=== PATIENT | female | born 1960 ===

== ENCOUNTER 2024-06-10 13:49 | Outpatient (AMB) | payer MEDICAID, SELFPAY ==
--- NOTE | 2024-06-10 14:03 | A.OFFPC_ITS ---
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 Care is being transferred from Dr. Evens Chu in [place], [place]. Medical records were requested today. The patient will require the following durable medical equipment (DME): Diapers, Gloves, Rollator, Wheelchair, Underpads. 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 Name: Pt refuse hever interpret Accompanied by: Daughter Allergies No Known Allergies Allergy (Verified 06/10/24 14:26) Medication List - Last Reconciled 06/10/24 by MALCOLM Rawls amantadine HCl 100 mg PO DAILY carbidopa-levodopa 25-250 mg 1 tab PO TID pantoprazole 40 mg PO DAILY pramipexole 1 mg PO DAILY Tobacco use date assessed: 06/10/24 Fall risk assessment: No Falls in past year Last assessed Fall Risk: 06/10/24 Dental Screening Dental Screen Date: 06/10/24 Did you have a dental visit in the last 12 months?: Yes Did you have a dental problem in the last 6 months where you did not have access to dental care?: No Was dental information given to patient?: Patient has dentist HPI 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 Evens Chu, In [place] Last visit:February 2024- just a follow up Last PE: June 2023 Specialist: Neurologist(parkinson's disease) OBGYN: obyn-patient needs to have mammogram every 6 months Past medical history: Parkinson's disease, prediabetes Medications: Family HX: Problem: reports neck pain that has been going on for few 6 months s/p fall in her kitchen reports going to the Dr and they gave her muscle relaxer that help a little only reports that they was no x-rays done or physical therapy for her neck Reports that she was getting PT for her parkinson's disease in the past, in [place] Reports that she has been having edema in BLE about 2 years now Reports that US venous Doppler was done in [place] and was negative She reports intermittent pain her legs Encouraged the patient to wear compression stockings reports that her legs has decreased sensation and pins and needles type pain consider referring her to Vascular leg are genaro as well a1c 5.9% prediabetes The patient is requesting a Rollator walker, wheelchair, diapers, gloves, and underpads The patient is incontinent and has for coordination due to Parkinson's She needs help with ADL at home to assist daughter who works and is not at home all the time to care for the patient The patient also would need bar assistant with transportation to appointments for the times when the daughter is at work Patient daughter reports that the patient was referred from her neurologist to a neurosurgeon for DBS surgery She is requesting a neurology referral with hopes that she could be referred to a neurosurgeon again Reports that she had one side DBS done already [facility] Medical History Aftercare following surgery of the nervous system, NEC Parkinson disease Type II diabetes mellitus Social History Housing: House Patient Tobacco Use Status: Never used Tobacco Tobacco use type: Cigarette e-Cigarette/Vaping Use: Never Used service: Yes Cognitive needs: Yes Hearing needs: No Vision needs: Yes Questionnaire PHQ-9 Over the last 2 weeks, how often have you been bothered by any of the following problems? 1. Little interest or pleasure in doing things: not at all 2. Feeling down, depressed, or hopeless: not at all 3. Trouble falling or staying asleep, or sleeping too much: nearly every day 4. Feeling tired or having little energy: not at all 5. Poor appetite or overeating: not at all 6. Feeling bad about yourself - or that you are a failure or have let yourself or your family down: not at all 7. Trouble concentrating on things, such as reading the newspaper or watching television: not at all 8. Moving or speaking so slowly that other people could have noticed. Or the opposite - being so fidgety or restless that you have been moving around a lot more than usual: nearly every day 9. Thoughts that you would be better off or of hurting yourself in some way: not at all Total score: 6 Depression Screening Interpretation: Positive Depression Screening Done: Yes 55086 - PHQ-9 Billing: Yes Source: Developed by Drs. Dung Brewster, Augusta Dawn, Hussein Ham and colleagues, with an educational amarjit from [employer] Thrive Questionnaire Date Thrive assessed: 06/10/24 I am a: Patient What is your living situation today?: I have a steady place to live Within the past 12 months, did the food you bought not last and you didn't have the money to get more?: Never true Within the past 12 months, did you worry whether your food would run out before you got money to buy more?: Sometimes True Do you have trouble paying for medicines?: No Do you have trouble getting transportation to medical appointments?: No Do you have trouble paying your heating and electricity bill?: No Do you have trouble taking care of your child, family member or friend?: No Do you have trouble with day-to-day activities such as bathing, preparing meals, shopping, managing finances, etc.?: Yes Are you currently unemployed and looking for a job?: No Are you interested in more education?: No Please select the resources that you would like help with: Care for elder or disabled and Daily support Currently or been in a relationship where the following occur: No concerns reported THRIVE Score: 1 AUDIT C Alcohol Use Questionnaire (AUDIT-C) 1. How often do you have a drink containing alcohol?: Never 3. How often do you have six or more drinks on one occasion?: Never Total Score: 0 MAVIS-7 AMB Questionnaire MAVIS-7 Date MAVIS - 7 assessed: 06/10/24 Feeling nervous, anxious, or on edge: 0 = Not at all Not being able to stop or control worryin = Not at all Worrying too much about different things: 0 = Not at all Trouble relaxin = Nearly every day Being so restless that it is hard to sit still: 0 = Not at all Becoming easily annoyed or irritable: 0 = Not at all Feeling afraid as if something awful might happen: 0 = Not at all Total MAVIS-7 score (0-4 normal; 5-9 mild; 10-14 moderate; 15-21 severe): 3 Source: Developed by Drs. Dung Brewster, Augusta Dawn, Hussein Ham and colleagues, with an educational amarjit from [employer] MAVIS-7 Assessment Billing MAVIS-7 Assessment Tool: MAVIS-7 Assessment 96205 Review of Systems Const Denies headache(s) Eyes Denies loss of vision ENT Denies vertigo, Denies dizziness, Denies headache(s), Reports neck pain and Denies sore throat Card Denies chest pain, Denies leg edema and Denies lightheadedness Resp Denies cough and Denies hemoptysis GI Denies abdominal pain, Denies melena, Denies constipation, Reports fecal incontinence, Denies diarrhea and Denies vomiting Denies urinary frequency, Denies dysuria, Reports urinary incontinence and Denies urinary urgency Musc Denies arthralgias, Denies joint swelling, Reports muscle cramps, Reports neck pain, Denies numbness and Denies tingling Skin/Breast Reports change in pigmentation (BLE redness) and Reports skin swelling (BLE) Neuro Denies Abnormal speech present, Denies vertigo, Denies dizziness, Denies headache(s), Reports lack of coordination, Denies loss of vision, Denies numbness, Denies tingling, Reports paresthesias (BLE) and Reports tremor(s) Psych Details: UE Physical exam (Primary Care) Vital Signs: Last Vital Signs Temp 97.3 F 06/10/24 14:06 Pulse 75 06/10/24 14:06 BP 92/60 06/10/24 14:06 Pulse Ox 98 06/10/24 14:06 Oxygen Delivery Method Room Air 06/10/24 14:06 BMI result Body Mass Index 37.8 Tobacco/Smoking Status: Tobacco use Status Tobacco use date assessed 06/10/24 06/10/24 14:21 Patient Tobacco Use Status Never used Tobacco 06/10/24 14:21 Tobacco use type Cigarette 06/10/24 14:21 e-Cigarette/Vaping Use Never Used 06/10/24 14:21 PHQ-9: PHQ-9 Score PHQ-9: Total score 6 06/10/24 21:13 Depression Screening Interpretation: Positive Thrive Assessment: Date of Thrive Assessment Date Thrive assessed 06/10/24 06/10/24 14:21 Currently or been in a relationship where the following occur: No concerns reported Const General: healthy appearing, no acute distress, alert and awake Nutritional Appearance: well nourished HENDC Ears: external ears normal General nose exam: Normal external nose present Eyes Conjunctivae: conjunctivae normal Sclerae: sclerae normal Pupils: Equal, round and reactive pupils present Neck Neck: Yes no lymphadenopathy and Yes no JVD Thyroid: Thyroid normal Carotids: no bruits Resp Effort & Inspection: normal respiratory effort and not tachypneic Auscultation: no crackles, no rales, no rhonchi and no wheezes Cardio Rate: regular rate Rhythm: regular rhythm Heart sounds: no murmurs and normal S1 and S2 GI Palpation (GI): Soft to palpation and nontender Auscultation: normal bowel sounds General: Yes no CVA tenderness Back/Spine/Pelvis Back: no CVA tenderness Cervical Spine: Cervical spine tenderness Thoracic/Lumbar Spine: No thoracic spinal tenderness and No lumbar spinal tenderness Skin General skin exam: erythema (BLE) Neuro Cranial nerves: Yes Equal, round and reactive pupils present Speech: No Abnormal speech present Gait exam (Neuro): Assisted gait required (assisted by daughter) Motor exam (neuro): Tremors during motor activity present (both arms noted) Extrem Right lower extremity: full ROM, normal capillary refill and edema Left lower extremity: full ROM, normal capillary refill and edema Results AMB Hemoglobin A1c AMB Hemoglobin A1c 5.9 % Last Edit by MITZI Guevara on 06/10/24 14:25 Results Reviewed Results Reviewed: Laboratory Last Values Hgb A1c (Clinic) 5.9 % (4.0-6.0) 06/10/24 14:25 Coding Level of Care Code New Pt Level 4 (00633) Diagnoses Neck pain M54.2 Neuralgia M79.2 Type 2 diabetes mellitus with other specified complication, without long-term current use of insulin E11.69 Diabetes mellitus complication status: with other specified complication 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 home use Diabetes mellitus type: type 2 Parkinson's disease, unspecified whether dyskinesia present, unspecified whether manifestations fluctuate G20.A1 Dyskinesia presence: unspecified whether dyskinesia Fluctuating manifestations: unspecified whether manifestations fluctuate Urinary incontinence, unspecified type R32 Incontinence type: urinary Urinary Incontinence type: unspecified incontinence Additional Codes MAVIS-7 Assessment Billing - MAVIS-7 Assessment Tool: MAVIS-7 Assessment 81687 ([id number]) PHQ-9 - 67178 - PHQ-9 Billing: Yes ([id number]) Time Spent (min) 46 Assessment & Plan Assessment & Plan (1) Neck pain: Code(s): M54.2 - Cervicalgia Category: Medical Plan: Reports ongoing neck pain from status post fall six-month ago. Reports that the patient was started on muscle relaxer that helped some. We will order a cervical x-ray to further evaluate. PT referral placed as well (2) Neuralgia: Code(s): M79.2 - Neuralgia and neuritis, unspecified Category: Medical Plan: Bilateral lower legs edema with some redness. Appears to be vascular deficiency related. Encouraged compression stockings. Gabapentin 100 mg t.i.d. ordered. 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 Patient daughter reports that the patient did not take the medication because she did not think that she needed it. A1c done in office was 5.9%, which puts the patient in the pre diabetic range. We will continue to monitor (4) Parkinson disease: Code(s): G20.A1 - Parkinson's disease without dyskinesia, without mention of fluctuations Category: Medical Qualifiers: Dyskinesia presence: unspecified whether dyskinesia Fluctuating manifestations: unspecified whether manifestations fluctuate Qualified Code(s): G20.A1 - Parkinson's disease without dyskinesia, without mention of fluctuations Plan: Patient had 1 side of DBS procedure for Parkinson per daughter. Reports that she would need a new neurologist to monitor her Parkinson's and also her neurologist referred her to a neurosurgeon for the DBS procedure in [place] Continue amantadine HCI 100 mg daily, carbidopa-levodopa 25-250 mg 1 tab TID, and Pramipexole 1 mg daily Will refer the patient to neurology. The patient daughter request for the p atient to have Rollator walker with seat for rest periods, and a wheelchair for long distance. These could significantly impact the patient quality of life. The patient could also from assistance with transportation to appointments when her daughter is at work. (5) Incontinence: Code(s): R32 - Unspecified urinary incontinence Category: Medical Qualifiers: Incontinence type: urinary Urinary Incontinence type: unspecified incontinence Qualified Code(s): R32 - Unspecified urinary incontinence Plan: The patient daughter requested dry direct super overnight unaware XX large, plus under past pads. The patient would also benefit from in home services to help the patient with ADLs when her daughter is at work. Orders: Orders AMB Hemoglobin A1c Today E11.9 - Type 2 diabetes mellitus without complic ations, G20.A1 - Parkinson's disease without dyskinesia, without mention of fluctuations Comprehensive [place]. Panel Fast Today E11.9 - Type 2 diabetes mellitus without complications, G20.A1 - Parkinson's disease without dyskinesia, without mention of fluctuations, M79.2 - Neuralgia and neuritis, unspecified, Z00.00 - Encounter for general adult medical examination without abnormal findings Vitamin D 25-OH Total Today E11.9 - Type 2 diabetes mellitus without complications, G20.A1 - Parkinson's disease without dyskinesia, without mention of fluctuations, M79.2 - Neuralgia and neuritis, unspecified, Z00.00 - Encounter for general adult medical examination without abnormal findings Magnesium Today E11.9 - Type 2 diabetes mellitus without complications, G20.A1 - Parkinson's disease without dyskinesia, without mention of fluctuations, M79.2 - Neuralgia and neuritis, unspecified, Z00.00 - Encounter for general adult medical examination without abnormal findings TSH reflex Free T4 Today E11.9 - Type 2 diabetes mellitus without complications, G20.A1 - Parkinson's disease without dyskinesia, without mention of fluctuations, M79.2 - Neuralgia and neuritis, unspecified, Z00.00 - Encounter for general adult medical examination without abnormal findings Hemoglobin A1c Today E11.9 - Type 2 diabetes mellitus without complications, G20.A1 - Parkinson's disease without dyskinesia, without mention of fluctuations, M79.2 - Neuralgia and neuritis, unspecified, Z00.00 - Encounter for general adult medical examination without abnormal findings B Type Natriuretic Peptide Today M79.89 - Other specified soft tissue disorders Complete Blood Count Auto Diff Today E11.9 - Type 2 diabetes mellitus without complications, G20.A1 - Parkinson's disease without dyskinesia, without mention of fluctuations, M79.2 - Neuralgia and neuritis, unspecified, Z00.00 - Encounter for general adult medical examination without abnormal findings Lipid Panel Today E11.9 - Type 2 diabetes mellitus without complications, G20.A1 - Parkinson's disease without dyskinesia, without mention of fluctuations, M79.2 - Neuralgia and neuritis, unspecified, Z00.00 - Encounter for general adult medical examination without abnormal findings Vitamin B12 and Folate Today E11.9 - Type 2 diabetes mellitus without complications, G20.A1 - Parkinson's disease without dyskinesia, without mention of fluctuations, M79.2 - Neuralgia and neuritis, unspecified, Z00.00 - Encounter for general adult medical examination without abnormal findings UA CC w/rflx Micro + Cult Today E11.9 - Type 2 diabetes mellitus without complications, G20.A1 - Parkinson's disease without dyskinesia, without mention of fluctuations, M79.2 - Neuralgia and neuritis, unspecified, Z00.00 - Encounter for general adult medical examination without abnormal findings Glucose Fasting Today E11.9 - Type 2 diabetes mellitus without complications, G20.A1 - Parkinson's disease without dyskinesia, without mention of fluctuations, M79.2 - Neuralgia and neuritis, unspecified, Z00.00 - Encounter for general adult medical examination without abnormal findings XR cervical spine 3V Today M54.2 - Cervicalgia PT Evaluation and Treatment Today M54.2 - Cervicalgia Referrals Neurology Referral G20.A1 - Parkinson's disease without dyskinesia, without mention of fluctuations Medications: New 2 trazodone 50 mg PO BEDTIME PRN 30 tabs 1RF sleep [Wheelchair] As directed 1 ea 0RF G20.A1 - Parkinson's disease without dyskinesia, without mention of fluctuations amantadine HCl 100 mg PO DAILY 30 caps 3RF amantadine HCl 100 mg PO DAILY 90 caps 3RF gabapentin 100 mg PO TID 30 days 90 caps 1RF [Dry Direct Super Ovrernight Underwear ()] As directed 36 ea 3RF R32 - Unspecified urinary incontinence [Gloves] As directed 100 ea 3RF R32 - Unspecified urinary incontinence [Underpads] As directed 90 ea 3RF R32 - Unspecified urinary incontinence [Rollator Walker with Seat] As directed 1 ea 0RF G20.A1 - Parkinson's disease w ithout dyskinesia, without mention of fluctuations
[2024-06-10 14:06] VITALS: BP 92/60; PULSE 75; TEMP 36.3; O2SAT 98; BMI 37.8
== END 2024-06-10 15:05 | disposition home or self-care (01) ==
LOC: HO.HMCH 13:49
DX: E11.69 Type 2 diabetes mellitus with other specified complication (principal); G20.A1 Parkinson's disease without dyskinesia, without mention of fluctuations; E11.40 Type 2 diabetes mellitus with diabetic neuropathy, unspecified; M54.2 Cervicalgia; M79.2 Neuralgia and neuritis, unspecified; R32 Unspecified urinary incontinence

== ENCOUNTER → 2024-06-10 13:49 | Outpatient (BNVA) | payer MEDICAID, SELFPAY | DX: G20.A1 Parkinson's disease without dyskinesia, without mention of fluctuations (principal); M54.2 Cervicalgia; M79.2 Neuralgia and neuritis, unspecified; E11.69 Type 2 diabetes mellitus with other specified complication; R32 Unspecified urinary incontinence | CPT/HCPCS: 83036; 96127; 99202 ==

== ENCOUNTER 2024-06-24 08:13 | Outpatient (REF) | payer MEDICAID, SELFPAY ==
--- NOTE | ~2024-06-24 | XR_ITS ---
EXAMINATION: XR CERVICAL SPINE CLINICAL INFORMATION: M54.2 - Cervicalgia COMPARISON: None available. TECHNIQUE: 3 views of the cervical spine were obtained. FINDINGS: No scoliosis. Mild straightening of the normal lordosis. Normal sagittal alignment without subluxation. No fracture, compression deformity, or suspicious bone lesion. Craniocervical junction and C1-2 articulation intact and aligned. Moderate disc degeneration present most notable at C4-5 and C5-6. There is otherwise mild disc degeneration. Mild multilevel degenerative facet changes. Normal facet alignment. The prevertebral soft tissues appear normal. Lung apices are clear. XR/XR cervical spine 3V IMPRESSION: 1. No acute bony abnormalities. 2. Mild to moderate cervical spondylosis. Electronically signed by: Kashif Reynolds MD 06/25/2024 03:38 PM EDT
[2024-06-24 08:40] LABS: MANUAL DIFF FLAG NO
[2024-06-24 09:42] LABS: Basophils Absolute Auto 0.1 X10*3/uL (0.0-0.2); Basophils Percent Auto 0.7 % (0-2); Eosinophils Absolute Auto 0.2 X10*3/uL (0.0-0.4); Eosinophils Percent Auto 2.6 % (0-4); Hematocrit 39.5 % (37.0-47.0); Hemoglobin 12.2 g/dl (12.0-16.0); Imm Gran Abs Auto 0.02 X10*3/uL (0.00-0.03); Imm Gran Pct Auto 0.3 % (0.0-0.4); Lymphocytes Absolute Auto 2.3 X10*3/uL (1.2-4.9); Mean Corpuscular HGB Conc 30.9 g/dl (31.0-35.0); Mean Corpuscular Volume 84.2 fL (80.0-98.0); Mean Platelet Volume 9.8 fL (9.4-12.3); Monocytes Absolute Auto 0.5 X10*3/uL (0.1-1.2); Monocytes Percent Auto 7.7 % (2-11); Neutrophils Absolute Auto 3.8 x10*3/uL (2.0-8.3); Neutrophils Percent Auto 54.7 % (45-73); Platelet Count 360 X10*3/uL (160-400); Red Blood Count 4.69 X10*6/uL (4.20-5.50); Red Cell Distribution Width 17.3 % (11.0-16.0); White Blood Count 6.9 X10*3/uL (4.8-10.8)
[2024-06-24 09:48] LABS: Estimated Average Glucose 134 mg/dL; Hemoglobin A1C 148.9313 umol/L; Hemoglobin A1c % 6.3 % (<6.0); Total Hemoglobin (HGBA1C) 3308.4649 umol/L
[2024-06-24 10:15] LABS: B Type Natriuretic Peptide < 10 pg/mL (<100)
[2024-06-24 10:20] LABS: Alanine Aminotransferase 6 U/L (0-31); Alkaline Phosphatase 94 U/L (39-117); Anion Gap 11 (12-20); Aspartate Amino Transferase 19 U/L (5-31); Blood Urea Nitrogen 28 mg/dL (9-16); Calcium 9.6 mg/dL (8.4-10.2); Carbon Dioxide 30 mmol/L (22-29); Chloride 105 mmol/L (96-108); Cholesterol 206 mg/dL (<200); Estimated Glomerular Filt Rate > 60; Glucose Fasting 110 mg/dL (60-99); HDL Cholesterol 61 mg/dL (>40); LDL Cholesterol Calculated 119 mg/dL (<100); Magnesium 2.3 mg/dL (1.6-2.6); Sodium 142 mmol/L (135-145); Total Protein 7.8 g/dL (6.5-8.0); Triglycerides 131 mg/dL (<150)
[2024-06-24 10:42] LABS: TSH reflex Free T4 2.73 uIU/mL (0.32-4.0); Vitamin D 25-OH Total 6.6 ng/mL (>30)
[2024-06-24 10:57] LABS: Vitamin B12 667 pg/mL (200-900)
[2024-06-24 13:55] LABS: Appearance Urine Clear; Color Urine Yellow; Glucose Urine UA Negative (Negative); Leukocyte Esterase Urine Negative (Negative); Nitrite Urine Negative (Negative); PH 6.5 (5.0-9.0); Urine Blood Negative (Negative); Urine Ketones Trace mg/dL (Negative); Urine Protein Negative (Neg-Trace)
== END 2024-06-24 08:14 | disposition home or self-care (01) ==
LOC: HO.XRAY 08:13
DX: E11.9 Type 2 diabetes mellitus without complications (principal); G20.A1 Parkinson's disease without dyskinesia, without mention of fluctuations; M79.2 Neuralgia and neuritis, unspecified; Z00.00 Encounter for general adult medical examination without abnormal findings; M79.89 Other specified soft tissue disorders; M47.812 Spondylosis without myelopathy or radiculopathy, cervical region
CPT/HCPCS: 36415; 72040; 80053; 80061; 81003; 82306; 82607; 82746; 83036; 83735; 83880; 84443; 85025

== ENCOUNTER → 2024-06-24 08:47 | Outpatient (BNV) | payer MEDICAID, SELFPAY | PROVIDERS: Visit Provider Radiology Diagnostic Radiology | DX: M54.2 Cervicalgia (principal); M47.892 Other spondylosis, cervical region | CPT/HCPCS: 72040 ==

== ENCOUNTER 2024-08-12 15:47 | Outpatient (AMB) | payer MEDICAID, SELFPAY ==
--- NOTE | 2024-08-12 15:58 | A.OFFPC_ITS ---
Vital Signs 08/12/24 15:59 Height 4 ft 9.28 in Weight 179 lb 3.773 oz BMI 38.4 BP 130/80 Blood Pressure Location Lt brachial Position Sitting Respiration 22 H Pulse 92 Pulse Source Pulse Oximeter Temp 98.8 F Temp Source Oral Pulse Oximetry (%) 95 Oxygen Delivery Method Room Air Intake Visit Reasons: pe [employer] Consultant Required: Yes [employer] Consultant Language: Stamp Classifier Name: Pt declined Accompanied by: Daughter Allergies No Known Allergies Allergy (Verified 08/12/24 16:23) Medication List - Last Reconciled 08/12/24 by MALCOLM Rawls amantadine HCl 100 mg PO DAILY carbidopa-levodopa 25-250 mg 1 tab PO QID cholecalciferol (vitamin D3) 50 mcg PO DAILY [Dry Direct Super Ovrernight Underwear (XX) As directed] gabapentin 100 mg PO TID 30 days [Gloves As directed] pantoprazole 40 mg PO DAILY [Portable Transport Wheelchair As directed] pramipexole 1 mg PO TID [Rollator Walker with Seat As directed] trazodone 50 mg PO BEDTIME PRN [Underpads As directed] [Wheelchair As directed] Tobacco use date assessed: 08/12/24 Fall risk assessment: 2 + Falls in past year Last assessed Fall Risk: 08/12/24 Dental Screening Dental Screen Date: 08/12/24 Did you have a dental visit in the last 12 months?: Yes Did you have a dental problem in the last 6 months where you did not have access to dental care?: No Was dental information given to patient?: Patient has dentist HPI pe HPI Details The patient is a 64-year-old female presenting for a routine physical examination and management of ongoing chronic health concerns. Notably, she has diabetes mellitus with a controlled HbA1c level. Concerns of pruritus and vaginal odor have been linked to her diabetes, although recent Pap tests did not identify any pathology. Concerning her cardiovascular health, the patient has treated hypercholesterolemia with LDL levels at 119. 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 There has been a 4-pound weight gain recently, coupled with reported increased anxiety levels impacting dietary habits, with an emphasis on limited physical activity attributed to back discomfort. Back pain has been mistaken for renal issues, although her kidney function remains normal based on diagnostic evaluations. Additionally, the patient?s vitamin D levels are low, managed with supplementation. The patient?s compliance with vaccinations is consistent except for this year?s flu shot. She has undergone regular eye and dental examinations, and a colonoscopy was reported last year. Health Maintenance: - Diabetes monitoring with HbA1c at 6.3 - Hypercholesterolemia monitoring; LDL a t 119 - Vitamin D supplementation for deficien cy - Biennial mammography for benign breast neoplasm?next scheduled for - Updated vaccinations with the akosua n of this year's flu vaccine - Five COVID vaccines administered - Serological screening (e.g., Pap smear , colonoscopy) reported as normal and up-to-date [facility] Medical History (Updated 08/29/24 @ 19:42 by MALCOLM Rawls) Aftercare following surgery of the nervous system, NEC Parkinson disease Type II diabetes mellitus Surgical History Hx of brain surgery Hx of section Social History Housing: House Patient Tobacco Use Status: Never used Tobacco Tobacco use type: Cigarette e-Cigarette/Vaping Use: Never Used service: Yes Cognitive needs: Yes (Walker) Hearing needs: No Vision needs: Yes (Glasses) Questionnaire PHQ-9 Over the last 2 weeks, how often have you been bothered by any of the following problems? 1. Little interest or pleasure in doing things: not at all 2. Feeling down, depressed, or hopeless: not at all 3. Trouble falling or staying asleep, or sleeping too much: nearly every day 4. Feeling tired or having little energy: nearly every day 5. Poor appetite or overeating: nearly every day 6. Feeling bad about yourself - or that you are a failure or have let yourself or your family down: not at all 7. Trouble concentrating on things, such as reading the newspaper or watching television: several days 8. Moving or speaking so slowly that other people could have noticed. Or the opposite - being so fidgety or restless that you have been moving around a lot more than usual: not at all 9. Thoughts that you would be better off or of hurting yourself in some way: not at all Total score: 10 Depression Screening Interpretation: Positive Depression Screening Done: Yes Source: Developed by Augusta Martinez, Hussein Ham and colleagues, with an educational amarjit from [employer]. Thrive Questionnaire Date Thrive assessed: 08/12/24 I am a: Patient What is your living situation today?: I have a steady place to live Within the past 12 months, did the food you bought not last and you didn't have the money to get more?: Never true Within the past 12 months, did you worry whether your food would run out before you got money to buy more?: Sometimes True Do you have trouble paying for medicines?: No Do you have trouble getting transportation to medical appointments?: No Do you have trouble paying your heating and electricity bill?: No Do you have trouble taking care of your child, family member or friend?: No Do you have trouble with day-to-day activities such as bathing, preparing meals, shopping, managing finances, etc.?: Yes Are you currently unemployed and looking for a job?: No Are you interested in more education?: No Currently or been in a relationship where the following occur: No concerns reported THRIVE Score: 1 AUDIT C Alcohol Use Questionnaire (AUDIT-C) 1. How often do you have a drink containing alcohol?: Never 3. How often do you have six or more drinks on one occasion?: Never Total Score: 0 Score Reviewed/Action Taken: No MAVIS-7 AMB Questionnaire MAVIS-7 Date MAVIS - 7 assessed: 08/12/24 Feeling nervous, anxious, or on edge: 0 = Not at all Not being able to stop or control worryin = Nearly every day Worrying too much about different things: 3 = Nearly every day Trouble relaxin = Several days Being so restless that it is hard to sit still: 0 = Not at all Becoming easily annoyed or irritable: 0 = Not at all Feeling afraid as if something awful might happen: 3 = Nearly every day Total MAVIS-7 score (0-4 normal; 5-9 mild; 10-14 moderate; 15-21 severe): 10 Source: Developed by Augusta Martinez Kurt Kroenke and colleagues, with an educational amarjit from [employer] Review of Systems Const Denies headache(s), Reports lethargy and Reports weight gain Eyes Denies loss of vision ENT Denies vertigo, Denies dizziness, Denies headache(s) and Denies sore throat Card Denies chest pain, Denies leg edema and Denies lightheadedness Resp Denies cough, Denies hemoptysis and Denies wheezing GI Denies abdominal pain, Denies melena, Reports constipation, Denies diarrhea and Denies vomiting Denies urinary frequency, Denies dysuria, Reports urinary incontinence, Denies urinary urgency, Reports vaginal odor and Reports vaginal pruritus Musc Reports back pain (lower back), Denies arthralgias, Denies joint swelling, Denies numbness and Denies tingling Skin/Breast Reports pruritus Neuro Denies Abnormal speech present, Denies behavioral changes, Denies vertigo, Denies dizziness, Denies headache(s), Denies loss of vision, Denies memory loss, Denies numbness and Denies tingling Psych Reports anxiety, Denies behavioral changes, Denies depression, Denies memory loss and Denies panic attacks Dillan/Lymph Denies easy bleeding and Denies easy bruising Aller/Immun Denies wheezing Physical exam (Primary Care) Vital Signs: Last Vital Signs Temp 98.8 F 08/12/24 15:59 Pulse 92 08/12/24 15:59 Resp 22 H 08/12/24 15:59 BP 130/80 08/12/24 15:59 Pulse Ox 95 08/12/24 15:59 Oxygen Delivery Method Room Air 08/12/24 15:59 BMI result Body Mass Index 38.4 Tobacco/Smoking Status: Tobacco use Status Tobacco use date assessed 08/12/24 08/12/24 16:19 Patient Tobacco Use Status Never used Tobacco 08/12/24 15:58 Tobacco use type Cigarette 08/12/24 15:58 e-Cigarette/Vaping Use Never Used 08/12/24 15:58 PHQ-9: PHQ-9 Score PHQ-9: Total score 10 08/12/24 16:28 Depression Screening Interpretation: Positive Thrive Assessment: Date of Thrive Assessment Date Thrive assessed 08/12/24 08/12/24 16:19 Currently or been in a relationship where the following occur: No concerns reported Const General: healthy appearing, no acute distress, alert and awake Nutritional Appearance: well nourished Orientation/consciousness: oriented to person, oriented to place and oriented to time HENMT Ears: TM's normal bilaterally General nose exam: Normal nasal mucous membranes and turbinates present Eyes Conjunctivae: conjunctivae normal Sclerae: sclerae normal Pupils: Equal, round and reactive pupils present Neck Neck: Yes no lymphadenopathy and Yes no JVD Thyroid: Thyroid normal Carotids: no bruits Resp Effort & Inspection: normal respiratory effort and not tachypneic Auscultation: no crackles, no rales, no rhonchi and no wheezes Cardio Rate: regular rate Rhythm: regular rhythm Heart sounds: no murmurs and normal S1 and S2 GI Palpation (GI): Soft to palpation, nontender, no hepatomegaly and no splenomegaly Auscultation: normal bowel sounds General: Yes no CVA tenderness Back/Spine/Pelvis Back: no CVA tenderness Thoracic/Lumbar Spine: No lumbar spinal tenderness Skin General skin exam: no rashes or lesions noted and dry skin Neuro General: oriented to person, oriented to place and oriented to time Cranial nerves: Yes Equal, round and reactive pupils present Speech: No Abnormal speech present Gait exam (Neuro): Normal gait present Motor exam (neuro): no tremor noted Extrem Right upper extremity: full ROM Left upper extremity: full ROM Right lower extremity: full ROM; no edema Left lower extremity: full ROM; no edema Psych Mental Status: mental status grossly normal Speech and movement: Normal speech and movement present Affect: normal affect Attitude: cooperative Thought process: Normal thought process present Results Reviewed Results Reviewed: Laboratory Tests 06/24/24 06/24/24 08:38 08:40 WBC 6.9 RBC 4.69 Hgb 12.2 Hct 39.5 MCV 84.2 MCH 26.0 L MCHC 30.9 L RDW 17.3 H Plt Count 360 Sodium 142 Potassium 4.0 Chloride 105 Carbon Dioxide 30 H Anion Gap 11 L BUN 28 H Creatinine 0.60 Estimated GFR > 60 Fasting Glucose 110 H Hemoglobin A1c % 6.3 H Calcium 9.6 Magnesium 2.3 Total Bilirubin 1.0 AST 19 ALT 6 Alkaline Phosphatase 94 B-Natriuretic Peptide < 10 Total Protein 7.8 Albumin 4.0 Triglycerides 131 Cholesterol 206 H LDL Cholesterol, Calc 119 H HDL Cholesterol 61 Vitamin B12 667 25-OH Vitamin D Total 6.6 L Folate 6.0 TSH 2.73 Urine Color Yellow Urine Appearance Clear Urine pH 6.5 Ur Specific [place] 1.020 Urine Protein Negative Urine Glucose (UA) Negative Urine Ketones Trace Urine Blood Negative Urine Nitrite Negative Ur Leukocyte Esterase Negative Coding Level of Care Code Est Pt Prev Care 40-64y([id number]) Diagnoses Annual physical exam Z00.00 Neuralgia M79.2 Cervical spondylosis M47.812 Parkinson's disease, unspecified whether dyskinesia present, unspecified whether manifestations fluctuate G20.A1 Dyskinesia presence: unspecified whether dyskinesia Fluctuating manifestations: unspecified whether manifestations fluctuate Urinary incontinence, unspecified type R32 Incontinence type: urinary Urinary Incontinence type: unspecified incontinence Type 2 diabetes mellitus with other specified complication, without long-term current use of insulin E11.69 Diabetes mellitus type: type 2 Diabetes mellitus mcfp insulin use: without mcfp use Diabetes mellitus complication status: with other specified complication Vaginal pruritus N89.8 Pure hypercholesterolemia E78.00 Vitamin D deficiency E55.9 Time Spent (min) 39 Assessment & Plan Assessment & Plan (1) Annual physical exam: Code(s): Z00.00 - Encounter for general adult medical examination without abnormal findings Category: Medical Plan: Preventative guidelines and recent labs reviewed with the patient. (2) Neuralgia: Code(s): M79.2 - Neuralgia and neuritis, unspecified Category: Medical Plan: Bilateral lower legs edema with some redness. Appears to be vascular deficiency related. Encouraged compression stockings. Gabapentin 100 mg t.i.d. ordered. (3) Cervical spondylosis: Code(s): M47.812 - Spondylosis without myelopathy or radiculopathy, cervical region Category: Medical Plan: Complained of neck pain on previous visit Cervical x-ray completed on 06/24/2024 Shows [id number] cervical spondylosis PT referral placed (4) Parkinson disease: Code(s): G20.A1 - Parkinson's disease without dyskinesia, without mention of fluctuations Category: Medical Qualifiers: Dyskinesia presence: unspecified whether dyskinesia Fluctuating manifestations: unspecified whether manifestations fluctuate Qualified Code(s): G20.A1 - Parkinson's disease without dyskinesia, without mention of fluctuations Plan: Patient had 1 side of DBS procedure for Parkinson per daughter. Reports that she would need a new neurologist to monitor her Parkinson's and also her neurologist referred her to a neurosurgeon for the DBS procedure in [place] Continue amantadine HCI 100 mg daily, carbidopa-levodopa 25-250 mg 1 tab TID, and Pramipexole 1 mg daily Will refer the patient to neurology. The patient daughter request for the patient to have Rollator walker with seat for rest periods, and a wheelchair for long distance. These could significantly impact the patient quality of life. The patient could also from assistance with transportation to appointments when her daughter is at work. (5) Incontinence: Code(s): R32 - Unspecified urinary incontinence Category: Medical Qualifiers: Incontinence type: urinary Urinary Incontinence type: unspecified incontinence Qualified Code(s): R32 - Unspecified urinary incontinence Plan: The patient daughter requested dry direct super overnight unaware XX large, plus under past pads. The patient would also benefit from in home services to help the patient with ADLs when her daughter is at work. (6) Diabetes: Code(s): E11.9 - Type 2 diabetes mellitus without complications Category: Medical Qualifiers: Diabetes mellitus type: type 2 Diabetes mellitus mcfp insulin use: without terminal superintendent use Diabetes mellitus complication status: with other specified complication Qualified Code(s): E11.69 - Type 2 diabetes mellitus with other specified complication Plan: The patient was diagnosed with type 2 diabetes in [place] and was prescribed metformin. Patient daughter reports that the patient did not take the medication because she did not think that she needed it. A1c done in office was 5.9%, which puts the patient in the pre diabetic range. Blood work done on 06/24/2024 A1c 6.3% Increase slightly but still remains in the pre diabetic range Reinforced low sugar/carbohydrate diet and activity as tolerated We will repeat A1c in 4 months (7) Vaginal pruritus: Code(s): N89.8 - Other specified noninflammatory disorders of vagina Category: Medical Plan: reports vaginal itching reports urine odor recent UA negative denies discharge or dysuria patient is incontinent of urine inadequate fluids to due to fear to incontinence suspect concentrated urine and itchiness from incontinence encouraged fluid intake and continue regular incontinence care (8) Pure hypercholesterolemia: Code(s): E78.00 - Pure hypercholesterolemia, unspecified Category: Medical Plan: Total cholesterol 206, triglycerides 131, LDL 119, HDL 61, 06/24/2024 Reinforced low-cholesterol diet and activity as tolerated We will recheck lipids in 4 months (9) Vitamin D deficiency: Code(s): E55.9 - Vitamin D deficiency, unspecified Category: Medical Plan: Vitamin-D 6.6-goal greater than 30 Cholecalciferol 50 mcg started we will recheck in 4 months Plan follow up in the 3 months Orders: Orders Comprehensive Harmon. Panel Fast 4 Months M54.2 - Cervicalgia, Z00.00 - Encounter for general adult medical examination without abnormal findings, G20.A1 - Parkinson's disease without dyskinesia, without mention of fluctuations, E11.69 - Type 2 diabetes mellitus with other specified complication, R32 - Unspecified urinary incontinence Lipid Panel 4 Months M54.2 - Cervicalgia, Z00.00 - Encounter for general adult medical examination without abnormal findings, G20.A1 - Parkinson's disease without dyskinesia, without mention of fluctuations, E11.69 - Type 2 diabetes mellitus with other specified complication, R32 - Unspecified urinary incontinence UA CC w/rflx Micro + Cult 4 Months M54.2 - Cervicalgia, Z00.00 - Encounter for general adult medical examination without abnormal findings, G20.A1 - Parkinson's disease without dyskinesia, without mention of fluctuations, E11.69 - Type 2 diabetes mellitus with other specified complication, R32 - Unspecified urinary incontinence TSH reflex Free T4 4 Months M54.2 - Cervicalgia, Z00.00 - Encounter for general adult medical examination without abnormal findings, G20.A1 - Parkinson's disease without dyskinesia, without mention of fluctuations, E11.69 - Type 2 diabetes mellitus with other specified complication, R32 - Unspecified urinary incontinence Complete Blood Count Auto Diff 4 Months M54.2 - Cervicalgia, Z00.00 - Encounter for general adult medical examination without abnormal findings, G20.A1 - Parkinson's disease without dyskinesia, without mention of fluctuations, E11.69 - Type 2 diabetes mellitus with other specified complication, R32 - Unspecified urinary incontinence Vitamin D 25-OH Total 4 Months M54.2 - Cervicalgia, Z00.00 - Encounter for gen eral adult medical examination without abnormal findings, G20.A1 - Parkinson's disease without dyskinesia, without mention of fluctuations, E11.69 - Type 2 diabetes mellitus with other specified complication, R32 - Unspecified urinary incontinence Hemoglobin A1c 4 Months M54.2 - Cervicalgia, Z00.00 - Encounter for general adult medical examination without abnormal findings, G20.A1 - Parkinson's disease without dyskinesia, without mention of fluctuations, E11.69 - Type 2 diabetes mellitus with other specified complication, R32 - Unspecified urinary incontinence Medications: New polyethylene glycol 3350 (Miralax) 17 grams PO DAILY 238 grams 2RF docusate sodium (Colace) 100 mg PO BID 60 caps 3RF
[2024-08-12 15:59] VITALS: BP 130/80; PULSE 92; RESP 22; TEMP 37.1; O2SAT 95; BMI 38.4
== END 2024-08-12 16:55 | disposition home or self-care (01) ==
LOC: HO.HMCH 15:47
DX: Z00.00 Encounter for general adult medical examination without abnormal findings (principal); M79.2 Neuralgia and neuritis, unspecified; M47.812 Spondylosis without myelopathy or radiculopathy, cervical region; G20.A1 Parkinson's disease without dyskinesia, without mention of fluctuations; R32 Unspecified urinary incontinence; E11.69 Type 2 diabetes mellitus with other specified complication; N89.8 Other specified noninflammatory disorders of vagina; E78.00 Pure hypercholesterolemia, unspecified; E55.9 Vitamin D deficiency, unspecified

== ENCOUNTER → 2024-08-12 15:47 | Outpatient (BNVA) | payer MEDICAID, SELFPAY | DX: Z00.00 Encounter for general adult medical examination without abnormal findings (principal); N89.8 Other specified noninflammatory disorders of vagina; E78.00 Pure hypercholesterolemia, unspecified; F41.9 Anxiety disorder, unspecified; E55.9 Vitamin D deficiency, unspecified; M79.2 Neuralgia and neuritis, unspecified; M47.812 Spondylosis without myelopathy or radiculopathy, cervical region; G20.A1 Parkinson's disease without dyskinesia, without mention of fluctuations; R32 Unspecified urinary incontinence; E11.69 Type 2 diabetes mellitus with other specified complication | CPT/HCPCS: 99397 ==

== ENCOUNTER 2024-08-26 13:34 | Outpatient (REF) | payer MEDICAID, SELFPAY | END 2024-08-26 13:35 | disposition home or self-care (01) | LOC: HO.MAMMO 13:34 | DX: Z13.89 Encounter for screening for other disorder (principal) ==

== ENCOUNTER 2024-10-27 10:48 | Outpatient (REF) | payer MEDICAID, SELFPAY ==
--- NOTE | ~2024-10-27 | MM_ITS ---
EXAMINATION: MM DIAGNOSTIC DIGITAL BREAST TOMOSYNTHESIS, BILATERAL CLINICAL INFORMATION: 6 month follow-up complicated cyst versus solid mass in the left breast 2-3 o'clock 6 to 7 cm from the nipple on outside imaging recommended. COMPARISON: Mammography: Comparison is made with relevant prior exams. TECHNIQUE: Digital breast mammography with tomosynthesis is performed in both the craniocaudal and mediolateral oblique views along with computer-aided detection (CAD). FINDINGS: There are scattered areas of fibroglandular density (ACR BI-RADS breast composition Category b). Right: There are no significant masses, abnormal calcifications, or other abnormalities. Left: Circumscribed oval mass in the upper outer breast stable. No suspicious masses calcifications or other abnormal findings. Targeted color Doppler ultrasound scanning in the left breast demonstrates a simple cyst 2-3 o'clock 6 cm from the nipple measuring 6 x 5 x 2 mm. Results are provided to the patient at time of visit by the technologist. MM/MM tomosynthesis diagnostic BI IMPRESSION: Right: Negative. Left: Circumscribed oval mass upper outer quadrant not significantly changed from priors dating back to September 2023. On ultrasound this area appears to be simple cysts. Recommend follow-up in one year when the patient will be due for bilateral mammography to demonstrate 2 years of stability. ASSESSMENT: BI-RADS BI-RADS 3 - Probably benign finding(s) - 6 month follow-up suggested RECOMMENDATION: 12 month diagnostic follow up This patient's information was entered into a reminder system with a target due date for their next mammogram. Electronically signed by: Galilea Baca DO 10/27/2024 12:14 PM EDT
== END 2024-10-27 10:49 | disposition home or self-care (01) ==
LOC: HO.MAMMO 10:48
DX: N63.21 Unspecified lump in the left breast, upper outer quadrant (principal)
CPT/HCPCS: 76642; 77062; 77066

== ENCOUNTER → 2024-10-27 11:00 | Outpatient (BNV) | payer MEDICAID, SELFPAY | PROVIDERS: Visit Provider Internal Medicine | DX: N60.02 Solitary cyst of left breast (principal) | CPT/HCPCS: 77062; 77066 ==

== ENCOUNTER 2024-12-02 15:36 | Outpatient (AMB) | payer MEDICAID, SELFPAY ==
--- NOTE | 2024-12-02 15:44 | A.OFFPC_ITS ---
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 The patient reports experiencing intermittent chest pain that occurs randomly, sometimes associated with movement, and resolves spontaneously. She denies any history of myocardial infarction or stroke and has not had any stents placed. The patient was diagnosed with prediabetes three months ago. Based on RCRI the patient has low risk of complications. We will get repeat labs and EKG prior to the procedure. 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, NEC Parkinson disease Type II diabetes mellitus Surgical History Hx of brain surgery Hx of section Social History Housing: House Patient Tobacco Use Status: Never used Tobacco Tobacco use type: Cigarette e-Cigarette/Vaping Use: Never Used Second Hand Smoke Exposure: No service: Yes Cognitive needs: Yes (Walker) Hearing needs: No Vision needs: Yes (Glasses) Questionnaire Thrive Questionnaire Date Thrive assessed: 06/08/24 I am a: Patient What is your living situation today?: I have a steady place to live Within the past 12 months, did the food you bought not last and you didn't have the money to get more?: Never true Within the past 12 months, did you worry whether your food would run out before you got money to buy more?: Sometimes True Do you have trouble paying for medicines?: No Do you have trouble getting transportation to medical appointments?: No Do you have trouble paying your heating and electricity bill?: No Do you have trouble taking care of your child, family member or friend?: No Do you have trouble with day-to-day activities such as bathing, preparing meals, shopping, managing finances, etc.?: Yes Are you currently unemployed and looking for a job?: No Are you interested in more education?: No Currently or been in a relationship where the following occur: No concerns reported THRIVE Score: 1 MAVIS-7 AMB Questionnaire MAVIS-7 Date MAVIS - 7 assessed: 08/12/24 Source: Developed by Drs. Dung Brewster, Augusta Dawn, Hussein Ham and colleagues, with an educational amarjit from [employer]. Review of Systems Const Details: Positives besides what was mentioned in HPI are in BOLD Constitutional: No Weight Change, No Fever, No Chills, No Night Sweats, No Fatigue, No Malaise ENT/Mouth: No Hearing Changes, No Ear Pain, No Nasal Congestion, No Sinus Pain, No Hoarseness, No sore throat, No Rhinorrhea, No Swallowing Difficulty Eyes: No Eye Pain, No Swelling, No Redness, No Foreign Body, No Discharge, No Vision Changes Cardiovascular: No Chest Pain, No SOB, No PND, No Dyspnea on Exertion, No Orthopnea, No Claudication, No Edema, No Palpitations Respiratory: No Cough, No Sputum, No Wheezing, No Smoke Exposure, No Dyspnea Gastrointestinal: No Nausea, No Vomiting, No Diarrhea, No Constipation, No Pain, No Heartburn, No Anorexia, No Dysphagia, No Hematochezia, No Melena, No Flatulence, No Jaundice Genitourinary: No Dysmenorrhea, No DUB, No Dyspareunia, No Dysuria, No Urinary Frequency, No Hematuria, No Urinary Incontinence, No Urgency, No Flank Pain, No Urinary Flow Changes, No Hesitancy Musculoskeletal: No Arthralgias, No Myalgias, No Joint Swelling, No Joint Stiffness, No Back Pain, No Neck Pain, No Injury History Skin: No Skin Lesions, No Pruritis, No Hair Changes, No Breast/Skin Changes, No Nipple Discharge Neuro: No Weakness, No Numbness, No Paresthesias, No Loss of Consciousness, No Syncope, No Dizziness, No Headache, No Coordination Changes, No Recent Falls Psych: No Anxiety/Panic, No Depression, No Insomnia, No Personality Changes, No Delusions, No Rumination, No SI/HI/AH/VH, No Social Issues, No Memory Changes, No Violence/Abuse Hx., No Eating Concerns Heme/Lymph: No Bruising, No Bleeding, No Transfusions History, No Lymphadenopathy Endocrine: No Polyuria, No Polydipsia, No Temperature Intolerance Physical exam (Primary Care) Vital Signs: Last Vital Signs Temp 97.5 F 12/02/24 15:46 Pulse 101 H 12/02/24 15:46 BP 110/72 12/02/24 15:46 Pulse Ox 97 12/02/24 15:46 Oxygen Delivery Method Room Air 12/02/24 15:46 BMI result Body Mass Index 37.7 Tobacco/Smoking Status: Tobacco use Status Tobacco use date assessed 12/02/24 12/02/24 15:57 Patient Tobacco Use Status Never used Tobacco 12/02/24 15:45 Tobacco use type Cigarette 12/02/24 15:45 e-Cigarette/Vaping Use Never Used 12/02/24 15:45 Thrive Assessment: Date of Thrive Assessment Date Thrive assessed 06/08/24 12/02/24 15:45 Currently or been in a relationship where the following occur: No concerns reported Const Other: Pertinent findings are in BOLD GENERAL APPEARANCE NAD, activity normal for age, well developed/ well nourished, no cyanosis, pallor, or diaphoresis. EYES lids/conjunctiva normal. EARS/NOSE/THROAT Mucous membranes moist, nares normal, lips/teeth normal uvula midline without oral pharyngeal erythema, exudate or swelling TMs normal bilaterally. No lymphangitis/lymphedema. HEAD/NECK normocephalic atraumatic, no facial trauma, neck is supple. RESPIRATORY respiratory effort normal, speaks in full sentences, no tripod position, no accessory muscle use. Lungs clear to auscultation without rhonchi, wheezes, rales CARDIAC Regular rate and rhythm, no edema. ABDOMINAL Soft, ND/NT. No evidence of fluid wave. No pulsatile masses on exam, rebound tenderness, Mckeon sign or pain over Mcburney's point. MUSCLES/EXTREMITIES No abnormal range of motion, no swelling. SKIN Warm, pink and dry. No rashes, dermatoses, petechiae or lesions. NEUROLOGICAL Speech is clear and appropriate. Normal level of consciousness. Gait and coordination are normal. 5/5 strength in all extremities. Resting tremor in bilateral arms. PSYCH Normal mood and affect. Judgement/competence is appropriate Results AMB Hemoglobin A1c AMB Hemoglobin A1c 6.2 % Last Edit by BETZY Thompson on 12/02/24 16:05 Results Reviewed Results Reviewed: Laboratory Last Values Hgb A1c (Clinic) 6.2 % (4.0-6.0) H 12/02/24 15:45 Coding Level of Care Code Est Pt Level 4 (38028) Diagnoses Pre-procedural examination Z01.818 Time Spent (min) 30 Assessment & Plan Assessment & Plan (1) Pre-procedural examination: Code(s): Z01.818 - Encounter for other preprocedural examination Category: Medical Plan: - CBC, CMP within normal range. EKG with nomral sinus rhythm. Patient is low risk of complicaitons for anasthesia prior to the procedure. Okay to proceed with CT scan as planned from our standpoint. Plan I discussed with the patient the need for an EKG and blood work to evaluate her chest pain and ensure she is fit for the upcoming CT scan with anesthesia. We also talked about her prediabetes diagnosis and the importance of monitoring her blood glucose levels and considering lifestyle changes. Orders: Orders AMB Hemoglobin A1c 12/02/24 E11.69 - Type 2 diabetes mellitus with other specified complication AMB EKG-In Office 12/02/24 Z01.818 - Encounter for other preprocedural examination Complete Blood Count Auto Diff Today Z01.818 - Encounter for other preprocedural examination Comprehensive Met. Panel Today Z01.818 - Encounter for other preprocedural examination
[2024-12-02 15:46] VITALS: BP 110/72; PULSE 101; TEMP 36.4; O2SAT 97; BMI 37.7
== END 2024-12-02 16:30 | disposition home or self-care (01) ==
LOC: HO.HMCH 15:37
PROVIDERS: Visit Provider Internal Medicine
DX: Z01.818 Encounter for other preprocedural examination (principal)

== ENCOUNTER → 2024-12-02 15:36 | Outpatient (BNVA) | payer MEDICAID, SELFPAY | PROVIDERS: Visit Provider Internal Medicine | DX: Z01.818 Encounter for other preprocedural examination (principal); R07.9 Chest pain, unspecified; E11.69 Type 2 diabetes mellitus with other specified complication | CPT/HCPCS: 83036; 99212 ==

== ENCOUNTER 2024-12-03 07:42 | Outpatient (REF) | payer MEDICAID, SELFPAY ==
[2024-12-03 08:01] LABS: MANUAL DIFF FLAG NO
[2024-12-03 08:26] LABS: Hematocrit 39.8 % (37.0-47.0); Hemoglobin 12.6 g/dl (12.0-16.0); Imm Gran Abs Auto 0.02 X10*3/uL (0.00-0.03); Imm Gran Pct Auto 0.3 % (0.0-0.4); Lymphocytes Absolute Auto 2.3 X10*3/uL (1.2-4.9); Mean Corpuscular HGB Conc 31.7 g/dl (31.0-35.0); Mean Corpuscular Hemoglobin 27.0 pg (27.0-33.0); Mean Corpuscular Volume 85.4 fL (80.0-98.0); NRBC Abs Auto 0.000 X10*3/uL (0.0-0.012); NRBC Pct Auto 0.0 /100WBC (0.0-0.2); Platelet Count 336 X10*3/uL (160-400); Red Blood Count 4.66 X10*6/uL (4.20-5.50); White Blood Count 6.2 X10*3/uL (4.8-10.8)
[2024-12-03 08:59] LABS: Alanine Aminotransferase 8 U/L (0-31); Albumin Level 4.4 g/dL (3.5-5.0); Alkaline Phosphatase 102 U/L (39-117); Anion Gap 11 (12-20); Aspartate Amino Transferase 22 U/L (5-31); Blood Urea Nitrogen 23 mg/dL (9-16); Calcium 9.6 mg/dL (8.4-10.2); Carbon Dioxide 30 mmol/L (22-29); Chloride 105 mmol/L (96-108); Estimated Glomerular Filt Rate > 60; Potassium 4.1 mmol/L (3.3-5.1); Sodium 142 mmol/L (135-145); Total Protein 7.7 g/dL (6.5-8.0)
== END 2024-12-03 07:43 | disposition home or self-care (01) ==
LOC: HO.LAB 07:42
PROVIDERS: Visit Provider Internal Medicine
DX: Z01.818 Encounter for other preprocedural examination (principal)
CPT/HCPCS: 36415; 80053; 85025